=== PATIENT | male | born 1990 | race Two or more races ===

== ENCOUNTER 2024-10-16 04:58 | Emergency (ER) | payer SELFPAY ==
[~2024-10-16] VITALS: Ht 177.8 cm; Wt 79.4 kg
[2024-10-16] MEDS: IBUPROFEN 600 MG TABLET PO ONE (07:00)
[2024-10-16] MEDS ORDERED: IBUPROFEN 600 MG TABLET ONE (07:04)
[2024-10-16] MEDS ORDERED: IBUP-1955 PO (07:23)
[2024-10-16 07:49] VITALS: BP 130/72; TEMP 98.1; O2SAT 98
== END 2024-10-16 07:51 | disposition home or self-care (01) ==
LOC: ER 05:02
DX: S82.002A Unspecified fracture of left patella, initial encounter for closed fracture (principal); Z60.2 Problems related to living alone; V98.8XXA Other specified transport accidents, initial encounter; Y93.89 Activity, other specified; Y92.488 Other paved roadways as the place of occurrence of the external cause; Y99.8 Other external cause status
CPT/HCPCS: 73564-TC

== ENCOUNTER 2024-10-16 22:49 | Emergency (ER) | payer SELFPAY ==
[~2024-10-16 22:49] MED LIST: IBUP-1955 PO
== END 2024-10-16 23:45 | disposition left against medical advice (07) ==
LOC: ER 22:53
DX: M25.569 Pain in unspecified knee (principal); Z53.21 Procedure and treatment not carried out due to patient leaving prior to being seen by health care provider

== ENCOUNTER 2025-02-14 23:19 | Emergency (ER) | payer SELFPAY ==
[~2025-02-14] VITALS: Ht 177.8 cm; Wt 74.8 kg
[2025-02-15 00:48] VITALS: BP 125/82; TEMP 98; O2SAT 100
== END 2025-02-15 00:59 | disposition left against medical advice (07) ==
LOC: ER 23:22
DX: M25.562 Pain in left knee (principal); Z53.21 Procedure and treatment not carried out due to patient leaving prior to being seen by health care provider